=== PATIENT | female | born 1980 | race Caucasian/White ===

== ENCOUNTER 2017-08-05 12:06 | Observation (INO) | payer MEDICAID, SELFPAY ==
[2017-08-05] VITALS (10 sets, daily range): BP systolic 136–156; BP diastolic 77–99; PULSE 65–115; RESP 18; TEMP 36.3–36.9; O2SAT 93–100; BMI 59.0
--- NOTE | 2017-08-05 | IMM_PTH ---
PATIENT: KIERSTEN SAMANIEGO LOC: MS3 U#:[id number] AGE/SX: 36/F ROOM: MS307 RE08/05/[address]: Dr. Immanuel Maria MD : 1980 BED: 1 DIS: 08/06/2017 SPEC #: [id number] RECD: 08/08/17 11:52 STATUS: SOUClive REQ #: [id number] REMEDIOS: 08/05/17 00:[address]: Immanuel Maria DEPT: IMMUNOHISTOCHEMISTRY RECD BY: Madeline Coppola ENTERED: 08/08/17 11:53 SP TYPE: IMMUNO OTHR DR: Out of [facility] Doctor Tissues: A - Thyroid gland, NOS Procedures: HBME (initial) CD56 (add) CK19 (add) GAL-3 (add) TTF1 (add) PHYSICIAN & INSTITUTION [place] [id number] SPECIMEN INFORMATION: Tissue Source: A ? Left thyroid nodule Clinical Info: Autoimmune thyroiditis Specimen Number: [id number] A3 CPT code: 68883, 99745 x4 METHODOLOGY: Deparaffinized sections of prefer/formalin-fixed tissue or PAP/DQ stained slides are incubated with monoclonal/polyclonal antibodies/oligonucleotide probes. Localization is made via biotin free immunoperoxidase method. Appropriate controls are performed and reacted as expected. Results on target cell population are indicated in the following table: RESULTS: ANTIBODY / CLONE RESULT Block A3 HBME1 (HBME-1) positive CK19 (A53-B/A2.26) positive GAL3 (9C4) positive CD56 (123C3.D5) negative TTF-1 (8G7G3/1) positive These tests were developed and their performance characteristics determined by [facility]. They may not have been cleared or approved by the U.S. Food and Drug Administration. The FDA has determined that such clearance or approval is not necessary. INTERPRETATION: A. Left thyroid, thyroidectomy: Papillary microcarcinoma. Case has been reviewed in consultation with Dr. Arredondo who concurs with the above diagnosis. IDC:[email or web address] AM:raimundo 08/09/17
--- NOTE | 2017-08-05 | THYROID_PTH ---
PATIENT: KIERSTEN SAMANIEGO LOC: MS3 U#:[id number] AGE/SX: 36/F [place]OM: [facility] [place]08/05/[address]: Dr. Immanuel Maria MD : 1980 BED: 1 DIS: 08/06/2017 SPEC #: [id number] RECD: 08/05/17 10:45 STATUS: GINA REMatthew #: [id number] REMEDIOS: 08/05/17 00:[address]: Immanuel Maria DEPT: SURGICAL PATHOLOGY RECD BY: Madeline Coppola ENTERED: 08/05/17 11:13 SP TYPE: THYROID OTHR DR: Out of Town Doctor Tissues: A - Thyroid gland, NOS B - Thyroid gland, NOS Procedures: Frozen Section (charge) Surgery Specimen Level V Frozen (no charge) HEADER OPERATION: Thyroidectomy, total PRE-OP DIAGNOSIS: Autoimmune thyroiditis TISSUE SUBMITTED: A ? Left thyroid nodule ? suspicious (sent for FS), B ? Right thyroid lobe FROZEN SECTION DIAGNOSIS A. Left thyroid lobe, lobectomy: Consistent with colloid nodule. AM: 08/05/17 MICROSCOPIC DIAGNOSIS A. Left lobe of thyroid, lobectomy: Consistent with colloid nodule (3 cm in greatest dimension). Incidental papillary microcarcinoma (2.5 x 1 mm). See cancer checklist below. B. Right lobe of thyroid, lobectomy: Colloid nodules. No evidence of malignancy. AM: 08/09/17 COMMENT A. THYROID CANCER SUMMARY: Procedure ? left lobectomy Received (fresh) Specimen integrity - intact Specimen size ? 4.6 x 3.2 x 1.2 cm Specimen weight ? 9.2 gm Tumor focality - unifocal Tumor laterality ? left lobe Tumor size ? 2.5 x 1 mm Histologic type ? papillary carcinoma Variant - classical Architecture - classical Cytomorphology - classical Margins ? uninvolved by carcinoma; 3 mm from closest (anterior) margin. Tumor capsule ? not present Tumor capsular invasion ? not present Lymph-Vascular invasion ? not present Extrathyroidal extension ? not present Other findings ? colloid nodules Lymph nodes ? not submitted PATHOLOGIC STAGE: pT1 Nx Mx The above summary is in compliance with [employer] [place] [employer] (CAP) Cancer Protocols Checklist and [place] Joint Committee on Cancer (AJCC), Staging Manual, 8th Ed. A. Immunohistochemistry ([id number]) supports the above diagnosis. Case has been reviewed in consultation with Dr. Arredondo who concurs with the above diagnosis. IDC:SJ MICROSCOPIC DESCRIPTION Slides are reviewed. GROSS DESCRIPTION A - Received fresh for frozen section consultation labeled with the patient's name is a specimen designated left thyroid nodule. The specimen consists of a lobe of thyroid measuring 4.6 x 3.2 x 1.2 cm and weighing 9.2 gm. The specimen is differentially inked as follows: anterior ? blue, posterior ? black. Serial sections reveal a gelatinous manzo nodule measuring 3 cm in greatest dimension. A hvac sales representative of the nodule is submitted for frozen section consultation in cassette #1. The remainder of the nodule is submitted in cassettes 2-5. The remainder of the thyroidal parenchymal is manzo and fleshy in appearance. No other nodules are grossly identified. The remainder of the specimen is submitted in cassettes 6-9. / AM: 08/05/17 B - Received is one container labeled with the patient's name and designated right lobe of thyroid. The specimen consists of a lobe of thyroid measuring 5.7 x 2.6 x 1.2 cm and weighing 8.7 gm. No parathyroid glands are identified. The specimen is differentially inked as follows: anterior ? blue, posterior ? black and presumed isthmus ? yellow. Serial sections reveal homogenous dark red cut surfaces without mass lesions. The specimen is submitted in its entirety in six cassettes. / AM: 08/08/17 TC:0 CPT: 21504 x2, 11783
--- NOTE | 2017-08-05 06:32 | EKG12_ITS ---
Test Reason : CHEST PAIN Blood Pressure : / mmHG Vent. Rate : 083 BPM Atrial Rate : 083 BPM P-R Int : 152 ms QRS Dur : 088 ms QT Int : 394 ms P-R-T Axes : 042 012 010 degrees QTc Int : 462 ms Normal sinus rhythm Normal ECG When compared with ECG of 05-AUG-2017 07:34, MANUAL COMPARISON REQUIRED, DATA IS UNCONFIRMED Confirmed by YANI GONZALEZ ([id number]), editor school photograph EARL POWER ([id number]) on 08/11/2017 3:12:50 PM Referred By: Immanuel Maria Confirmed By:YANI GONZALEZ
[2017-08-05 06:55] LABS: Internal QC Validated? YES +Cl - CLEAR BKGD; Pregnancy, Urine Negative Negative
[2017-08-05 07:13] LABS: Anion Gap 9 (5-15); BUN 9 mg/dL (7-18); BUN/Creat Ratio 13.7 RATIO (10-20); Calcium,Total 8.4 mg/dL (8.5-10.1); Chloride 104 mmol/L (98-107); Creatinine, Serum 0.66 mg/dL (0.55-1.02); EST Glomerular Filtration Rate 107 mL/min (>60); Est Glom Filt Rate - Afr Amer 130 mL/min (>60); Estimated Creatinine Clearance 109.25 ml/min; Glucose 133 mg/dL (74-106); Potassium 3.6 mmol/L (3.5-5.1); Sodium Level 139 mmol/L (136-145)
--- NOTE | 2017-08-05 12:14 | PCM.OPRPT ---
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 Ultrasound had revealed a nodule with suspicious features and per her video library assistant excision was advised and she presented for evaluation. Evaluation revealed dominant nodule of the left lobe of the thyroid with some suspicious features and due to compressive symptoms complaints total thyroidectomy was offered with hopes of stabilizing her high thyroid hormone levels and she was eager to proceed. The risks, alternatives, potential comp occasions, and benefits were discussed at length and witnessed informed consent obtained in the office. Procedure went as follows: Patient was identified in the preoperative holding brought to the operating room she is placed under general anesthesia and intubated. The neuro monitoring electrodes were then placed in the chest in accordance with the manufactures directions to allow for recurrent laryngeal nerve monitoring. The neck was then prepped and draped in usual sterile fashion and the planned skin incision in marked 2 finger breaths above the sternal notch with a marking pen. The incisional line was then injected with 1% lidocaine with 100,000 epinephrine for a total of 6 cc. After lying for vasoconstriction a 15 blade scalpel was used to make an incision 8 cm in length through the skin and subcutaneous tissues and platysma. A subplatysmal flap was then elevated superiorly and inferiorly to allow placement of the self-retaining thyroid retractor. The strap muscles were then divided in the midline and beginning on the left side the thyroid lobe dissected in a sub-capsular fashion. The inferior middle and superior thyroid vessels were individually clamped and ligated with a combination of 3-0 silk sutures and vascular clips in the parathyroid gland identified along the inferior vascular pedicle and preserved the recurrent laryngeal nerve was also identified and followed to its nerve entry point in the thyroid gland dissected free of its attachments to the trachea. This was then transected at the isthmus and sent for pathologic evaluation which revealed a benign colloid nodule without malignancy. Attention was then turned to the contralateral side where similar dissection was then carried out and completed again with preservation of the laryngeal nerve and parathyroid glands. The wound bed was then irrigated saline solution and examined for sites of bleeding. Significant bleeding was encountered and #7 flat drains were then placed into each tracheoesophageal groove and brought out through a separate stab incision in the neck and secured with silk sutures. The strap muscles were then approximated in the midline with a running 3-0 Vicryl suture followed by interrupted 3-0 Vicryl sutures to close the platysma and subcutaneous tissues. A 5-0 Monocryl was then used to close the skin followed by Steri-Strips completing the procedure. The patient was then returned to anesthesia where she was revived and extubated without complication having tolerated the procedure well. Type of Anesthesia:: General Anesthesiologist: Immanuel Kay Specimen's removed: THYROID, TOTAL Drains: #7 FLAT Estimated Blood Loss (mL): 20 ML Fluids Replaced: 1200 ML Grafts/Implants Used: NONE - Complications NONE - Admit VTE Documentation VTE Present on Admission: No VTE Mechan Device Prophylaxis: SCD's VTE Pharm Prophylaxis ordered?: No
--- NOTE | 2017-08-05 12:22 | OP.PCM_ITS ---
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 Ultrasound had revealed a nodule with suspicious features and per her nursing home assistant excision was advised and she presented for evaluation. Evaluation revealed dominant nodule of the left lobe of the thyroid with some suspicious features and due to compressive symptoms complaints total thyroidectomy was offered with hopes of stabilizing her high thyroid hormone levels and she was eager to proceed. The risks, alternatives, potential comp occasions, and benefits were discussed at length and witnessed informed consent obtained in the office. Procedure went as follows: Patient was identified in the preoperative holding brought to the operating room she is placed under general anesthesia and intubated. The neuro monitoring electrodes were then placed in the chest in accordance with the manufactures directions to allow for recurrent laryngeal nerve monitoring. The neck was then prepped and draped in usual sterile fashion and the planned skin incision in marked 2 finger breaths above the sternal notch with a marking pen. The incisional line was then injected with 1 % lidocaine with 100,000 epinephrine for a total of 6 cc. After lying for vasoconstriction a 15 blade scalpel was used to make an incision 8 cm in length through the skin and subcutaneous tissues and platysma. A subplatysmal flap was then elevated superiorly and inferiorly to allow placement of the self- retaining thyroid retractor. The strap muscles were then divided in the midline and beginning on the left side the thyroid lobe dissected in a sub- capsular fashion. The inferior middle and superior thyroid vessels were individually clamped and ligated with a combination of 3-0 silk sutures and vascular clips in the parathyroid gland identified along the inferior vascular pedicle and preserved the recurrent laryngeal nerve was also identified and followed to its nerve entry point in the thyroid gland dissected free of its attachments to the trachea. This was then transected at the isthmus and sent for pathologic evaluation which revealed a benign colloid nodule without malignancy. Attention was then turned to the contralateral side where similar dissection was then carried out and completed again with preservation of the laryngeal nerve and parathyroid glands. The wound bed was then irrigated saline solution and examined for sites of bleeding. Significant bleeding was encountered and #7 flat drains were then placed into each tracheoesophageal groove and brought out through a separate stab incision in the neck and secured with silk sutures. The strap muscles were then approximated in the midline with a running 3-0 Vicryl suture followed by interrupted 3-0 Vicryl sutures to close the platysma and subcutaneous tissues. A 5-0 Monocryl was then used to close the skin followed by Steri-Strips completing the procedure. The patient was then returned to anesthesia where she was revived and extubated without complication having tolerated the procedure well. Type of Anesthesia:: General Anesthesiologist: Immanuel Kay Specimen's removed: THYROID, TOTAL Drains: #7 FLAT Estimated Blood Loss (mL): 20 ML Fluids Replaced: 1200 ML Grafts/Implants Used: NONE - Complications NONE - Admit VTE Documentation VTE Present on Admission: No VTE Mechan Device Prophylaxis: SCD's VTE Pharm Prophylaxis ordered?: No
[2017-08-05] MEDS: HYDROcodone Bitartrate/Apap 5/325 Tablet PO (13:30)
--- NOTE | 2017-08-05 15:07 | EKG12_ITS ---
Test Reason : PREOP Blood Pressure : / mmHG Vent. Rate : 087 BPM Atrial Rate : 087 BPM P-R Int : 148 ms QRS Dur : 090 ms QT Int : 382 ms P-R-T Axes : 030 -15 004 degrees QTc Int : 459 ms Normal sinus rhythm Normal ECG No previous ECGs available Confirmed by YANI GONZALEZ ([id number]), make up editor EARL POWER ([id number]) on 08/11/2017 3:01:05 PM Referred By: Immanuel Maria Confirmed By:YANI GONZALEZ
[2017-08-05] MEDS: Lactated Ringers 1,000 ML 120 ML IV ×2 (15:18→23:10)
--- NOTE | 2017-08-05 18:19 | NURSING ---
no gross neurological deficits noted at present
[2017-08-05] MEDS: Acetaminophen 325 MG Tablet 650 MG PO (23:10)
[2017-08-06 06:04] VITALS: BP 120/82; PULSE 77; RESP 20; TEMP 36.4; O2SAT 95
[2017-08-06] MEDS: Acetaminophen 325 MG Tablet 650 MG PO ×2 (06:06→13:35)
[2017-08-06 06:07] LABS: Calcium,Total 8.6 mg/dL (8.5-10.1)
[2017-08-06 08:15] VITALS: BP 115/63; PULSE 74; RESP 18; TEMP 36.4; O2SAT 98
[2017-08-06] MEDS: Multivitamins,Therapeutic Tablet 1 TABLET PO (09:17)
[2017-08-06] MEDS: Aspirin E.C. 81 MG Tablet PO (09:17)
--- NOTE | 2017-08-06 09:50 | PCM.PN.SRG ---
Subjective: Patient doing well this morning with some chest pain yesterday, cardiac assessment negative. Denies perioral numbness or tingling. Objective: Well appearing female, neck incision clean and dry without fluid collection. - Physical Exam General: Alert, Oriented x3 HEENT: Atraumatic, PERRLA, Normocephalic Oral: Moist Mucosa Neck: Supple, - - surgical incision intact, drain output minimal Lungs: Normal air movement Cardiovascular: Regular rate Skin: No rashes, No breakdown Neurological: - - Chvostek's sign negative Psych/Mental Status: Normal Affect, Appropriate, Alert and oriented to time, place, person, mood and affect Vital Signs Temp Pulse Resp BP Pulse Ox 97.6 F L 77 20 H 120/82 H 95 08/06/17 06:04 08/06/17 06:04 08/06/17 06:04 08/06/17 06:04 08/06/17 06:04 Oxygen Flow Rate 2 Oxygen Delivery Method Room Air Weight: 165.9 kg Body Mass Index (BMI) 59.0 Intake and Output for Last 24 Hours 08/04/17 08/05/17 08/06/17 23:59 23:59 23:59 Intake Total 3682 / 3682 604 / 604 Output Total 1435 / 1435 250 / 250 Balance 2247 / 2247 354 / 354 Laboratory Tests Past 24 Hrs 08/05/17 08/05/17 08/05/17 12:45 15:45 18:53 Calcium Ionized Calcium Pending Troponin I < 0.02 < 0.02 08/05/17 08/06/17 08/06/17 23:21 05:20 05:35 Calcium 8.6 Ionized Calcium Troponin I < 0.02 < 0.02 Assessment/Plan Doing well after total thyroidectomy in the setting of suspicious nodule and compressive symptoms with Gavino's thyroiditis. Drains removed at bedside. Start thyroid replacement therapy. Follow-up in 2 weeks. Thyroidectomy instruction sheet given.
--- NOTE | 2017-08-06 09:58 | PCM.DC ---
- Discharge Diagnoses Current Active Problems: Current Active and Chronic Problems Nontoxic multinodular goiter (Chronic) You will use the following diet at home:: Regular Discharge Activity: Return to Normal Activity, May not drive while taking narcotic pain medications., May Shower Weight Bearing Status: Weight bearing as tolerated Call your doctor if your incision/area has: Sudden Increased Bleeding, Increased Pain/ Swelling, Increased Redness, Swelling at the incision site Call your doctor if you observe: Fever of 101 or Higher, Numbness or Tingling Allergies/Adverse Reactions: Allergies aspirin [From Soma Compound] Allergy (Verified 07/29/17 09:01) Other SEIZURES carisoprodol [From Soma Compound] Allergy (Verified 07/29/17 09:01) Other SEIZURES latex Allergy (Verified 07/29/17 09:01) Hives HIVES & SEZURES terbutaline Allergy (Verified 07/29/17 09:01) Other SEIUZURES Medications to take at Discharge Albuterol Inhaler [Ventolin Hfa (SP)] 1 - 2 puff INHALATION Q6H PRN PRN 07/29/17 Aspirin E.C. [Ecotrin] 81 mg PO DAILY@0800 07/29/17 Mometasone/Formoterol [Dulera 200 Mcg/5 Mcg Inhaler] 13 gm IH BID 07/29/17 Multivitamin [Daily Multiple Vitamin] 1 each PO DAILY 07/29/17 Primary Care Physician: Milo Coker,Out of [Primary Care Provider] - Please Follow Up With: Immanuel Maria MD When: 2 weeks
[2017-08-06 11:00] VITALS: RESP 18
[2017-08-06 13:49] VITALS: BP 144/82; PULSE 79; RESP 18; TEMP 36.8; O2SAT 98
== END 2017-08-06 15:30 | disposition home or self-care (01) ==
LOC: SDC 12:21 → MS3 12:21
PROVIDERS: Anesthesiology; Admitting Provider Otolaryngology; Visit Provider Otolaryngology
PROC: (CPT 60240; principal; 2017-08-05 08:15)
DX: E04.2 Nontoxic multinodular goiter (principal); E06.3 Autoimmune thyroiditis; J44.9 Chronic obstructive pulmonary disease, unspecified; Z79.82 Long term (current) use of aspirin; G25.81 Restless legs syndrome; K21.9 Gastro-esophageal reflux disease without esophagitis; Z79.899 Other long term (current) drug therapy
CPT/HCPCS: 00320; 60240; 36415; 80048; 81025; 82310; 82330; 84484; 88307; 88331; 88341; 88342; 93005; 96360; 96361; 99218; J7120; G0378; G0379; J2405; J3490